=== PATIENT | female | born 1985 | race Native Hawaiian/Other Pacific Islander ===

== ENCOUNTER 2016-10-10 12:27 | Emergency (ER) | payer OTHER ==
[~2016-10-10] VITALS: Ht 160 cm; Wt 41.7 kg
[~2016-10-10 12:27] MED LIST: ALPR0.2566 PO
[2016-10-10 12:35] VITALS: BP 136/86; TEMP 98
== END 2016-10-10 14:09 | disposition home or self-care (01) ==
LOC: ED 12:27
DX: Z13.89 Encounter for screening for other disorder (principal)
CPT/HCPCS: 99282; Q0177